=== PATIENT | female | born 1990 | race Caucasian/White ===

== ENCOUNTER 2018-03-20 18:06 | Inpatient (IN) | payer OTHER ==
[2018-03-20] MEDS ORDERED: ACETAMINOPHEN 325 MG TABLET (FP) PO PRN ×2 (18:51→20:11)
[2018-03-20 18:55] VITALS: BMI 35.4
[2018-03-20] MEDS ORDERED: OXYTOCIN 10 UNITS/ML VIAL IM ONE (19:00)
[2018-03-20] MEDS ORDERED: IBUPROFEN 600 MG TABLET (FP) PO ONE (19:00)
[2018-03-20] MEDS ORDERED: ACETAMINOPHEN 325 MG TABLET (FP) ONE (19:00)
[2018-03-20] MEDS: IBUPROFEN 600 MG TABLET (FP) PO PRN ×2 (19:00→23:35)
[2018-03-20] MEDS ORDERED: OXYTOCIN 20 UNITS in 0.9% NS 20 UNIT/1,000 ML INFUS.BAG IV ONE (19:15)
[2018-03-20] MEDS: OXYTOCIN 20 UNITS in 0.9% NS 20 UNIT/1,000 ML INFUS.BAG IV ONE ×2 (19:15→23:36)
[2018-03-20 19:52] LABS: BASO % 0.1 % (0-2.0); EOS % 0.2 % (0-4.5); HEMATOCRIT 34.8 % (32.4-45.2); HEMOGLOBIN 11.4 GM/dL (10.7-15.3); LYMPH % 10.2 % (8-40); MCH 25.9 pg (25.7-33.7); MCHC 32.7 g/dl (32.0-36.0); MEAN CELL VOLUME 79.2 fl (80-96); MEAN PLT VOLUME 8.4 fl (7.5-11.1); MONO % 5.2 % (3.8-10.2); NEUT % 84.3 % (42.8-82.8); PLATELET COUNT 312 K/MM3 (134-434); RBC 4.39 M/mm3 (3.60-5.2); RDW 13.9 % (11.6-15.6); WHITE BLOOD COUNT 13.9 K/mm3 (4.0-10.0)
[2018-03-20 20:07] LABS: PROTHROMBIN TIME (PATIENT) 11.3 SEC (9.7-13.0)
[2018-03-20 20:10] LABS: ACTIVATED PTT 26.1 SECONDS (25.2-36.5)
[2018-03-20] MEDS ORDERED: BENZOCAINE 20% 57 GM BOTTLE TP PRN (20:11)
[2018-03-20] MEDS ORDERED: BISACODYL 10 MG SUPP.RECT RC PRN (20:11)
[2018-03-20] MEDS ORDERED: BENZOCAINE 28 GM HEMORRHOIDAL OINTMENT TP PRN (20:11)
[2018-03-20] MEDS ORDERED: IBUPROFEN 600 MG TABLET (FP) PO PRN (20:11)
[2018-03-20] MEDS ORDERED: METHYLERGONOVINE MALEATE 0.2 MG/1 ML AMP IM PRN (20:11)
[2018-03-20] MEDS ORDERED: oxyCODONE HCL 5 MG TABLET PO PRN (20:11)
[2018-03-20] MEDS ORDERED: WITCH HAZEL 50% (TUCKS) 40 PAD/JAR PAD TP PRN (20:11)
[2018-03-20 20:22] LABS: ANION GAP 12 MMOL/L (8-16); BLOOD UREA NITROGEN 10 mg/dL (7-18); CALCIUM 8.7 mg/dL (8.5-10.1); CHLORIDE 104 mmol/L (98-107); CO2 24 mmol/L (21-32); CREATININE 0.6 mg/dL (0.55-1.3); GLUCOSE,RANDOM 98 mg/dL (74-106); POTASSIUM 4.1 mmol/L (3.5-5.1); SODIUM 140 mmol/L (136-145)
[2018-03-20] MEDS: MISOPROSTOL 200 MCG TABLET NR ONE (20:40)
--- NOTE | 2018-03-20 20:49 | HP ---
Past Medical History - Admission Chief Complaint: extramural delivery History of Present Illness: 27yo EDC 03/30/18 brought in by ambulance after vaginal delivery at home at 38.4 weeks. Per patient, placenta and baby delivered.She states she had low back pain and then all of a sudden felt the urge to push. 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: Alzheimer's, CVA, Dementia, Migraine, Multiple Sclerosis, Peripheral Neuropathy, Parkinson's, Seizure, Syncope, TIA, Vertigo, Other Cardiovascular: No: AFIB, Aneurysm, Aortic Insufficiency, Aortic Stenosis, CAD, CHF, Deep Vein Thrombosis, HTN, Hyperlipdemia, HI, Mitral Insufficiency, Mitral Stenosis, Murmur, Pulmonary Hypertension, Other Pulmonary: No: Asthma, Bronchitis, Cancer, COPD, O2 Dependent, Pneumonia, Previously Intubated, Pulmonary Embolus, Pulmonary Fibrosis, Sleep Apnea, Other Gastrointestinal: No: Ascites, Cancer, Constipation, Crohn's Disease, Diverticulitis, Diverticulosis, Esophageal Varices, Gastritis, GERD, GI Bleed, Hemorrhoids, Hiatal Hernia, Inflamatory Bowel Disease, Irritable Bowel Disease, Pancreatitis, Peptic Ulcer Disease, Ulcerative Colitis, Other Hepatobiliary: No: Cirrhosis, Cholelithiasis, Cholecystitis, Choledocholithiasis , Hepatitis A, Hepatitis B, Hepatitis C, Other Renal/: No: Renal Failure, Renal Inusuff, BPH, Cancer, Hematuria, Hemodialysis , Neurogenic Bladder, Renal Calculi, UTI, Other Reproductive: No: Ectopic , Endometriosis, Fibroids, PID, Polycystic Ovary Syndrome, Postmenopausal, Other ...: 4 ...Para: 3 ...Term: 3 ...: 0 ...Spon : 0 ...Induced : 0 ...Multiple Gestation: 0 ...LMP: 06/23/17 ... Weeks Gestation by Dates: 38.3 ...EDC by Dates: 03/30/18 ...EDC by Sono: 03/30/18 - Past Surgical History Past Surgical History: Yes: None Hx Myomectomy: No Hx Transabdominal Cerclage: No - Smoking History Smoking history: Never smoked Have you smoked in the past 12 months: No - Alcohol/Substance Use Hx Alcohol Use: No History of Substance Use: reports: None Home Medications - Allergies Allergies/Adverse Reactions: Allergies Allergy/AdvReac Type Severity Reaction Status Date / Time No Known Allergies Allergy Verified 07/05/16 09:27 - Home Medications Home Medications: Ambulatory Orders Pnv No.25/Iron Fumarate/FA/Dha [-1 Capsule] 1 each PO DAILY 07/07/12 Family Disease History - Family Disease History Family History: Unremarkable Review of Systems - Review of Systems Constitutional: reports: No Symptoms Eyes: reports: No Symptoms HENT: reports: No Symptoms Neck: reports: No Symptoms Cardiovascular: reports: No Symptoms Respiratory: reports: No Symptoms Gastrointestinal: reports: No Symptoms Genitourinary: reports: No Symptoms Breasts: reports: No Symptoms Reported Musculoskeletal: reports: No Symptoms Integumentary: reports: No Symptoms Neurological: reports: No Symptoms Endocrine: reports: No Symptoms Hematology/Lymphatic: reports: No Symptoms Psychiatric: reports: No Symptoms Physical Exam - Maternity Vital Signs: Vital Signs Temperature 99 F 03/20/18 19:00 Pulse Rate 102 H 03/20/18 19:30 Respiratory Rate 20 03/20/18 19:30 Blood Pressure 144/90 03/20/18 19:30 O2 Sat by Pulse Oximetry (%) 98 03/20/18 19:30 Constitutional: Yes: Well Nourished Eyes: Yes: WNL - Abdominal Exam/OB Fundal Height: 38 - Vaginal Exam/OB Vaginal Bleediing: Heavy (vaginal exam done; no lacerations noted; cervix intact ; uterus atonic; bimanual exam performed; approximately 300ml clots noted. Uterus massaged. Cytotec 1000mcg placed per rectum) - Physical Exam Musculoskeletal: Yes: WNL Extremities: Yes: WNL - Labs Lab Results: CBC, BMP 03/20/18 19:00 03/20/18 19:00 Hemorrhage Risk Assessment - Risk Factors Medium Risk Factors: Yes: None High Risk Factors: Yes: None Risk Score: 1 Risk Level: Medium Risk Problem List - Problems (1) Normal spontaneous vaginal delivery Assessment/Plan: 27yo now s/p extramural delivery admit to uterus with atony; cytotec given; pitocin 20units in NS running; monitor bleeding bp's mildly elevated; preeclampsia labs ordered; denies si/sx plan for routine pp care Dr. Henriquez Code(s): O80 - ENCOUNTER FOR FULL-TERM UNCOMPLICATED DELIVERY
[2018-03-20 20:53] LABS: URIC ACID 3.9 mg/dL (2.6-7.2)
[2018-03-20 20:55] LABS: GAMMA GLUTAMYL TRANSPEPTIDASE 10 U/L (5-85); SGOT/AST 11 U/L (15-37)
--- NOTE | 2018-03-20 20:55 | DS ---
Physical Exam-WHEEL TUNER Vital Signs: Vital Signs Temperature 99 F 03/20/18 19:00 Pulse Rate 102 H 03/20/18 19:30 Respiratory Rate 20 03/20/18 19:30 Blood Pressure 144/90 03/20/18 19:30 O2 Sat by Pulse Oximetry (%) 98 03/20/18 19:30 Constitutional: Yes: Well Nourished, No Distress, Calm Eyes: Yes: WNL, Conjunctiva Clear, EOM Intact HENT: Yes: WNL, Atraumatic, Normocephalic Neck: Yes: WNL, Supple, Trachea Midline Cardiovascular: Yes: WNL, Regular Rate and Rhythm Respiratory: Yes: WNL, Regular, CTA Bilaterally Gastrointestinal: Yes: WNL ...Rectal Exam: Yes: WNL Renal/: Yes: WNL Breast(s): Yes: WNL Musculoskeletal: Yes: WNL Extremities: Yes: WNL Integumentary: Yes: WNL Neurological: Yes: WNL, Alert, Oriented ...Motor Strength: WNL Psychiatric: Yes: WNL, Alert, Oriented Labs: CBC, BMP 03/20/18 19:00 03/20/18 19:00 Delivery - Delivery Type of Anesthesia: None Delivery, Single - Stages of Labor Date of Delivery: 03/20/18 Time of Delivery: 17:45 Time Placenta Delivered: 17:50 - Condition of Infant Hypoid 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 You may walk unlimited tianna of and climb stairs. You may resume driving the car when you feel safe and comfortable behind the wheel. No sexual activity as instructed. Wound care If you have a bandage, leave it on, and keep dry for 48-72 hours. After that time discard the outer bandage. If they are tapes on the skin under the out of bandage leave them in place. They will peel off in the next 7 to 10 days. Do Not Peel them off. You may shower the day after surgery. If there are tapes present on the skin, you may shower over them. Diet There are no dietary restrictions. Eat healthy, high-fiber foods. Drink 6 to 8 glasses of liquid each day. This will assist in keeping your bowels are regular. Pain management You may take Tylenol or acetaminophen or Ibuprofen (for example, Motrin, Advil etc.) from my pain prescription medication is ordered should be taken as prescribed for moderate to severe pain. Call MD for any of the following: Severe pain not relieved by medication Fever of 101 or higher Excessive bleeding or drainage on dressing Inability to urinate Disposition: HOME - Home Medications Comprehensive Discharge Medication List: Ambulatory Orders Pnv No.25/Iron Fumarate/FA/Dha [-1 Capsule] 1 each PO DAILY 07/07/12
[2018-03-21 07:13] LABS: BASO % 0.5 % (0-2.0); EOS % 0.5 % (0-4.5); HEMATOCRIT 29.7 % (32.4-45.2); HEMOGLOBIN 9.7 GM/dL (10.7-15.3); LYMPH % 19.5 % (8-40); MCHC 32.7 g/dl (32.0-36.0); MEAN CELL VOLUME 79.5 fl (80-96); MEAN PLT VOLUME 7.9 fl (7.5-11.1); MONO % 6.3 % (3.8-10.2); NEUT % 73.2 % (42.8-82.8); PLATELET COUNT 247 K/MM3 (134-434); RBC 3.73 M/mm3 (3.60-5.2); RDW 13.6 % (11.6-15.6); WHITE BLOOD COUNT 12.7 K/mm3 (4.0-10.0)
[2018-03-21] MEDS ORDERED: DIPHTH,PERTUSS(ACELL),TET 0.5 ML DISP.SYRIN IM ONE (10:00)
[2018-03-21] MEDS: MISOPROSTOL 200 MCG TABLET NR ONE (13:01)
[2018-03-21 13:39] LABS: COCAINE, UR NEGATIVE ng/ml (CUTOFF=300); OPIATES, URI NEGATIVE ng/ml (CUTOFF=300); PHENCYCLIDINE,URINE NEGATIVE ng/ml (CUTOFF=25); URINE AMPHETAMINES NEGATIVE ng/ml (CUTOFF=500); URINE BARBITURATES NEGATIVE ng/ml (CUTOFF=200)
[2018-03-21 13:43] LABS: METHADONE, UR NEGATIVE ng/ml (CUTOFF=300); URINE BENZODIAZEPINES NEGATIVE ng/ml (CUTOFF=200)
[2018-03-21] MEDS ORDERED: SENNOSIDES/DOCUSATE COMBO (SENNA PLUS) TABLET (UD) PO PRN (22:00)
--- NOTE | 2018-03-22 06:57 | PN ---
Post Progress Note - Subjective Subjective: 27 yo Para 4status post vaginal delivery, seen and evaluated. Doing well. Post Day: 2 Type of Delivery: Vital Signs: Vital Signs Temperature 98.4 F 03/21/18 22:00 Pulse Rate 108 H 03/21/18 22:00 Respiratory Rate 18 03/21/18 22:00 Blood Pressure 137/76 03/21/18 22:00 O2 Sat by Pulse Oximetry (%) 98 03/20/18 19:30 Breast Exam: Yes: Soft Uterus: Yes: Fundus Firm Abdomen/GI: Yes: Abdomen soft, Tolerating PO Lochia: Yes: Rubra Lochia, amount: Moderate Extremities: Yes: Calves non-tender Perineum: Yes: Intact Activity: Ambulating - Labs Labs: CBC WBC 12.7 K/mm3 (4.0-10.0) H 03/21/18 07:00 RBC 3.73 M/mm3 (3.60-5.2) 03/21/18 07:00 Hgb 9.7 GM/dL (10.7-15.3) L 03/21/18 07:00 Hct 29.7 % (32.4-45.2) L 03/21/18 07:00 MCV 79.5 fl (80-96) L 03/21/18 07:00 MCH 26.0 pg (25.7-33.7) 03/21/18 07:00 MCHC 32.7 g/dl (32.0-36.0) 03/21/18 07:00 RDW 13.6 % (11.6-15.6) 03/21/18 07:00 Plt Count 247 K/MM3 (134-434) D 03/21/18 07:00 MPV 7.9 fl (7.5-11.1) 03/21/18 07:00 Absolute Neuts (auto) 9.3 K/mm3 (1.5-8.0) H 03/21/18 07:00 Neutrophils % 73.2 % (42.8-82.8) 03/21/18 07:00 Lymphocytes % 19.5 % (8-40) D 03/21/18 07:00 Monocytes % 6.3 % (3.8-10.2) 03/21/18 07:00 Eosinophils % 0.5 % (0-4.5) D 03/21/18 07:00 Basophils % 0.5 % (0-2.0) D 03/21/18 07:00 Nucleated RBC % 0 % (0-0) 03/21/18 07:00 Retic Count 1.44 % (0.5-1.5) 03/20/18 19:00 Assessment/Plan Status post vaginal delivery Stable Discharge home F/U in clinic in 6 weeks
[2018-03-22 08:37] VITALS: BP 121/80; PULSE 93; TEMP 98.6
== END 2018-03-22 12:10 | disposition home or self-care (01) | DRG 561 ==
LOC: JLDR 18:06 → J3W 22:00
PROVIDERS: ADMIT Obstetrics & Gynecology; ATTEND Obstetrics & Gynecology
DX: Z39.0 Encounter for care and examination of mother immediately after delivery (principal)
CPT/HCPCS: 36415; 59409; 80048; 80307; 82977; 83010; 84450; 84460; 84550; 85025; 85044; 85610; 85730; 86593; 86850; 86900; 86901; 90715

== ENCOUNTER 2022-11-16 15:15 | Inpatient (IN) | payer OTHER ==
[2022-11-16] MEDS ORDERED: AMPICILLIN - 2 GM in SODIUM CHLORIDE 100 ML IVPB ONE (17:05)
[2022-11-16] MEDS ORDERED: DINOPROSTONE 10 MG VAGINAL SUPPOSITORY VG STA (17:30)
[2022-11-16] MEDS: ELECTROLYTE-148 SOLN 1,000 ML IV SCH ×2 (17:45→23:30)
[2022-11-16] MEDS ORDERED: AMPICILLIN SODIUM 2 GM VIAL ONE (17:48)
[2022-11-16] MEDS ORDERED: LABETALOL HCL 100 MG TABLET (FP) ONE (17:48)
[2022-11-16] MEDS: LABETALOL HCL 200 MG TABLET (FP) PO SCH ×2 (18:00→23:42)
[2022-11-16 18:19] VITALS: BMI 41.5
[2022-11-16 18:32] LABS: BASO % 0.3 % (0-2.0); EOS % 1.4 % (0-4.5); HEMATOCRIT 35.6 % (32.4-45.2); HEMOGLOBIN 12.1 GM/dL (10.7-15.3); LYMPH % 15.9 % (8-40); MCH 26.8 pg (25.7-33.7); MCHC 34.1 g/dl (32.0-36.0); MEAN CELL VOLUME 78.7 fl (80-96); MEAN PLT VOLUME 9.2 fl (7.5-11.1); MONO % 7.3 % (3.8-10.2); NEUT % 75.1 % (42.8-82.8); PLATELET COUNT 206 10^3/uL (134-434); RBC 4.53 M/mm3 (3.60-5.2); RDW 12.9 % (11.6-15.6); WHITE BLOOD COUNT 9.1 K/mm3 (4.0-10.0)
[2022-11-16 18:39] LABS: INR 0.98 (0.83-1.09); PROTHROMBIN TIME (PATIENT) 11.4 SEC (9.7-13.0)
[2022-11-16 18:58] LABS: POTASSIUM 4.1 mmol/L (3.5-5.1)
[2022-11-16 19:00] LABS: BLOOD UREA NITROGEN 9.4 mg/dL (7-18); CALCIUM 9.3 mg/dL (8.5-10.1)
[2022-11-16 19:01] LABS: ALBUMIN 2.5 g/dl (3.4-5.0)
[2022-11-16 19:03] LABS: CREATININE 0.6 mg/dL (0.55-1.3)
[2022-11-16 19:05] LABS: BILIRUBIN,TOTAL 0.3 mg/dL (0.2-1); TOT PROT 6.4 g/dl (6.4-8.2)
[2022-11-16] MEDS: AMPICILLIN - 1 GM in SODIUM CHLORIDE 100 ML IVPB SCH (21:30)
[2022-11-17] MEDS ORDERED: AMPICILLIN SODIUM 1 GM VIAL ONE ×5 (00:24→18:08)
[2022-11-17] MEDS: AMPICILLIN - 1 GM in SODIUM CHLORIDE 100 ML IVPB SCH ×6 (01:00→23:10)
[2022-11-17] MEDS ORDERED: LABETALOL HCL 100 MG TABLET (FP) ONE ×3 (05:17→18:16)
[2022-11-17] MEDS: LABETALOL HCL 200 MG TABLET (FP) PO SCH ×2 (05:30→18:20)
[2022-11-17] MEDS ORDERED: PROMETHAZINE HCL 25 MG/1 ML VIAL IVPB ONE ×2 (09:01→18:34)
[2022-11-17] MEDS ORDERED: BUTORPHANOL TARTRATE 1 MG/ML VIAL IVPUSH ONE ×2 (09:01→18:34)
[2022-11-17] MEDS ORDERED: OXYTOCIN 30 UNITS in 0.9% NS 30 UNIT/500 ML INFUS.BAG IVPB ONE ×2 (09:09→17:02)
[2022-11-17] MEDS ORDERED: OXYTOCIN 30 UNITS in 0.9% NS 30 UNIT/500 ML INFUS.BAG IVPB SCH (09:15)
[2022-11-17] MEDS ORDERED: LABETALOL HCL 200 MG TABLET (FP) PO ONE (09:20)
[2022-11-17] MEDS ORDERED: PROMETHAZINE HCL 25 MG/1 ML VIAL ONE ×2 (15:52→18:24)
[2022-11-17] MEDS ORDERED: BUTORPHANOL TARTRATE 2 MG/ML VIAL ONE (15:52)
[2022-11-17] MEDS ORDERED: BUTORPHANOL TARTRATE 1 MG/ML VIAL ONE (18:24)
[2022-11-17] MEDS: ELECTROLYTE-148 SOLN 1,000 ML IV SCH (18:44)
[2022-11-17] MEDS ORDERED: OXYTOCIN 20 UNITS in 0.9% NS 20 UNIT/1,000 ML INFUS.BAG IV ONE (18:54)
[2022-11-17] MEDS ORDERED: LIDOCAINE HCL 1% PRESERVATIVE FREE - 30ML VIAL ONE (18:54)
[2022-11-17] MEDS ORDERED: MISOPROSTOL 200 MCG TABLET ONE (19:07)
[2022-11-17] MEDS: MISOPROSTOL 100 MCG TABLET PR SCH ×2 (19:10→23:13)
[2022-11-17] MEDS ORDERED: ACETAMINOPHEN 325 MG TABLET (FP) PO PRN (19:15)
[2022-11-17] MEDS ORDERED: oxyCODONE HCL 5 MG TABLET PO PRN (19:15)
[2022-11-17] MEDS ORDERED: BENZOCAINE 28 GM HEMORRHOIDAL OINTMENT TP PRN (19:15)
[2022-11-17] MEDS ORDERED: METHYLERGONOVINE MALEATE 0.2 MG/1 ML AMP IM PRN (19:15)
[2022-11-17] MEDS ORDERED: WITCH HAZEL 50% (TUCKS) 40 PAD/JAR PAD TP PRN (19:15)
[2022-11-17] MEDS ORDERED: OXYTOCIN 20 UNITS in 0.9% NS 20 UNIT/1,000 ML INFUS.BAG IV SCH (19:15)
[2022-11-17] MEDS ORDERED: BENZOCAINE 20% 57 GM BOTTLE TP PRN (19:15)
[2022-11-17] MEDS ORDERED: BISACODYL 10 MG SUPP.RECT RC PRN (19:15)
[2022-11-17 19:55] LABS: CORD BASE EXCESS 1.7 mmol/L (0-2); CORD HCO3 26.8 mmHg (20-29); CORD HCO3 28.6 mmHg (20-29); CORD PCO2 43.9 mmHg (30-78); CORD pH 7.318 (7.14-7.44); CORD pH 7.404 (7.14-7.44)
[2022-11-18] MEDS: LABETALOL HCL 200 MG TABLET (FP) PO SCH ×2 (06:13→18:06)
[2022-11-18 07:15] LABS: BASO % 0.2 % (0-2.0); EOS % 0.6 % (0-4.5); HEMATOCRIT 30.2 % (32.4-45.2); HEMOGLOBIN 10.3 GM/dL (10.7-15.3); LYMPH % 13.6 % (8-40); MCH 26.8 pg (25.7-33.7); MCHC 34.1 g/dl (32.0-36.0); MEAN CELL VOLUME 78.6 fl (80-96); MEAN PLT VOLUME 9.6 fl (7.5-11.1); MONO % 7.4 % (3.8-10.2); NEUT % 78.2 % (42.8-82.8); PLATELET COUNT 168 10^3/uL (134-434); RBC 3.84 M/mm3 (3.60-5.2); RDW 12.9 % (11.6-15.6); WHITE BLOOD COUNT 13.8 K/mm3 (4.0-10.0)
[2022-11-18] MEDS: IBUPROFEN 600 MG TABLET (FP) PO PRN (15:09)
[2022-11-18] MEDS: MISOPROSTOL 100 MCG TABLET PR SCH (20:07)
[2022-11-18] MEDS: ELECTROLYTE-148 SOLN 1,000 ML IV SCH (20:07)
[2022-11-18] MEDS ORDERED: SENNOSIDES/DOCUSATE COMBO (SENNA PLUS) TABLET (UD) PO PRN (22:00)
[2022-11-19] MEDS: LABETALOL HCL 200 MG TABLET (FP) PO SCH (05:34)
[2022-11-19] MEDS: ELECTROLYTE-148 SOLN 1,000 ML IV SCH (06:28)
[2022-11-19] MEDS: IBUPROFEN 600 MG TABLET (FP) PO PRN (08:03)
[2022-11-19 12:08] VITALS: BP 130/70; PULSE 95; RESP 17; TEMP 97.8
== END 2022-11-19 13:18 | disposition home or self-care (01) | DRG 560 ==
LOC: JDEL 15:15 → JLDR 17:10 → J3W 11-17 22:00
PROVIDERS: ADMIT Student in an Organized Health Care Education/Training Program; ATTEND Obstetrics & Gynecology
PROC: 10E0XZZ Delivery of Products of Conception, External Approach (ICD-10-PCS; principal; 2022-11-17)
DX: O13.4 Gestational [pregnancy-induced] hypertension without significant proteinuria, complicating childbirth (principal); Z3A.39 39 weeks gestation of pregnancy; Z37.0 Single live birth
CPT/HCPCS: 36415; 36600; 80053; 82570; 82803; 84156; 85025; 85610; 85730; 86780; 86850; 86900; 86901; C9803-CS; U0003; U0005